=== PATIENT | male | born 1950 | race Caucasian/White ===

== ENCOUNTER → 2021-12-03 | Outpatient (CLI) | payer MEDICARE, OTHER ==
[~2021-12-03] MED LIST: ACTOS15 MG PO; ADVIL200 MG PO; ASPIRIN 325MG325 MG PO; BRILINTA90 MG PO; CRESTOR20 MG PO; ECOTRIN81 MG PO; GLUCOPHAGE1000 MG PO; GLUCOTROL 10 MG10 MG PO; HYGROTON TAB 2525 MG PO; IMDUR ER TAB 3030 MG PO; LEVOCETIRIZINE D5 MG PO; NITROSTAT 0.40.4 MG SL; NORVASC10 MG PO; OMEGA 3 1,0001 EACH PO; OMEPRAZOLE40 MG PO; PRINIVIL20 MG PO; TYLENOL COLD H1 EACH PO; ULTRAM50 MG PO; VALTREX 500 MG500 MG PO; VITAMIN D32000 UNI1 PO; ZANTAC 150 MG150 MG PO
== END ==
LOC: KOH-I 13:59
DX: M25.511 Pain in right shoulder (principal); M19.011 Primary osteoarthritis, right shoulder; M19.021 Primary osteoarthritis, right elbow
CPT/HCPCS: 73030; 73080

== ENCOUNTER → 2022-02-01 | Outpatient (CLI) | payer MEDICARE, OTHER | LOC: HEART 5 07:45 | DX: I25.10 Atherosclerotic heart disease of native coronary artery without angina pectoris (principal) | CPT/HCPCS: 78452; A9502; J2785 ==

== ENCOUNTER → 2022-04-02 | Day surgery (SDC) | payer MEDICARE, OTHER ==
[~2022-04-02] MED LIST changes: +ACYCLOVIR400 MG PO; +CILOSTAZOL50 MG PO; +DICLOFENAC SODI50 MG PO; +IPRATROPIU0.2 MG/1 M INH; +OXYCODON-ACETA1 EAC1 PO; +PLAVIX75 MG PO; +PROBIOTIC1 EAC1 PO; +SUDOGEST120 MG PO; +TYLENOL SINUS1 EAC3 PO; +TYLENOL325 M1 PO; +VITAMIN B12-FO1 EACH PO; +VITAMIN C100 MG PO; +ZESTRIL 40 MG T40 MG PO; +ZYPITAMAG2 MG PO
== END | disposition home or self-care (01) ==
LOC: OR 06:19
DX: Z12.11 Encounter for screening for malignant neoplasm of colon (principal); K57.30 Diverticulosis of large intestine without perforation or abscess without bleeding; D17.5 Benign lipomatous neoplasm of intra-abdominal organs; I25.10 Atherosclerotic heart disease of native coronary artery without angina pectoris; I10 Essential (primary) hypertension; E11.40 Type 2 diabetes mellitus with diabetic neuropathy, unspecified; M19.90 Unspecified osteoarthritis, unspecified site; Z86.010 Personal history of colon polyps; Z88.6 Allergy status to analgesic agent; Z88.2 Allergy status to sulfonamides; Z88.8 Allergy status to other drugs, medicaments and biological substances; Z79.02 Long term (current) use of antithrombotics/antiplatelets; Z87.891 Personal history of nicotine dependence
CPT/HCPCS: 82962; J2704